=== PATIENT | female | born 1990 | race Two or more races ===

== ENCOUNTER 2023-07-05 12:10 | Inpatient (IN) | payer OTHER ==
[~2023-07-05] VITALS: Ht 160 cm; Wt 74.8 kg
[2023-07-05] MEDS ORDERED: PRENATAL + DHA1 EACH PO (12:41)
[2023-07-05 13:35] LABS: HEMATOCRIT 36.3 % (36.0-45.00); HEMOGLOBIN 12.5 g/dL (12.0-15.00); MEAN CELL VOLUME 98.4 fL (80.00-100.00); MEAN CORPUSCULAR HGB CONC 34.5 g/dl (32.0-36.0); PLATELET COUNT 181 K/uL (150-450); RED BLOOD COUNT 3.69 M/uL (4.00-6.00); RED CELL DISTRIBUTION WIDTH 12.2 % (11.5-14.5)
[2023-07-05 14:25] LABS: INR 0.97; PARTIAL THROMBOPLASTIN TIME 25.2 SECONDS (22.0-34.0); PROTHROMBIN TIME 10.2 SECONDS (9.0-11.5)
== END 2023-07-07 13:50 | disposition home or self-care (01) | DRG 807 ==
LOC: LDR 12:10 → OB/GYN 17:05 → SURG 07-13 13:30
PROVIDERS: ADMIT Obstetrics & Gynecology; ATTEND Obstetrics & Gynecology
PROC: 10E0XZZ Delivery of Products of Conception, External Approach (ICD-10-PCS; principal; 2023-07-05)
PROC: 0UQG7ZZ Repair Vagina, Via Natural or Artificial Opening (ICD-10-PCS; 2023-07-05)
PROC: 4A1HXCZ Monitoring of Products of Conception, Cardiac Rate, External Approach (ICD-10-PCS; 2023-07-05)
DX: O71.4 Obstetric high vaginal laceration alone (principal); Z37.0 Single live birth; Z3A.38 38 weeks gestation of pregnancy; Z20.822 Contact with and (suspected) exposure to COVID-19

== ENCOUNTER 2024-04-29 05:11 | Day surgery (SDC) | payer OTHER ==
[2024-04-27 08:58] LABS: HEMATOCRIT 39.4 % (36.0-45.00); HEMOGLOBIN 13.6 g/dL (12.0-15.00); MEAN CELL VOLUME 95.4 fL (80.00-100.00); MEAN CORPUSCULAR HEMOGLOBIN 32.8 pg (27.00-32.0); MEAN CORPUSCULAR HGB CONC 34.4 g/dl (32.0-36.0); PLATELET COUNT 239 K/uL (150-450); RED BLOOD COUNT 4.13 M/uL (4.00-6.00); RED CELL DISTRIBUTION WIDTH 12.2 % (11.5-14.5)
[2024-04-27 09:41] LABS: INR 1.01; PARTIAL THROMBOPLASTIN TIME 29.2 SECONDS (22.0-34.0)
[2024-04-27 10:11] LABS: BILIRUBIN TOTAL 0.53 mg/dL (0.3-1.2); CALCIUM 9.1 mg/dL (8.5-10.1); CREATININE SERUM 0.63 mg/dL (0.55-1.02); GFR 108.83; GLOBULINA 3.1 G/DL (2.4-3.5); POTASSIUM 4.14 mEq/L (3.5-5.1); TOTAL PROTEIN 7.1 gm/dL (6.4-8.2)
[~2024-04-29 05:11] MED LIST: PRENATAL + DHA1 EACH PO
[2024-04-29] MEDS ORDERED: POVIDONE-IODINE 118 ML BOTT TOP ONE (06:58)
[2024-04-29] MEDS ORDERED: CEFOXITIN SODIUM 2,000 MG VIAL IV ONE (06:59)
[2024-04-29] MEDS ORDERED: RINGERS SOLUTION,LACTATED 1,000 ML IV SCH (08:30)
== END 2024-04-29 15:40 | disposition home or self-care (01) ==
LOC: CIR.AMB 05:11
PROVIDERS: ATTEND Obstetrics & Gynecology
DX: O02.1 Missed abortion (principal)

== ENCOUNTER 2025-07-01 13:45 | Inpatient (IN) | payer OTHER ==
[~2025-07-01] VITALS: Ht 160 cm; Wt 78.5 kg
[2025-07-11] VITALS (7 sets, daily range): BP systolic 106–130; BP diastolic 66–77
[2025-07-11] MEDS ORDERED: PRENATAL CAPLE1 EAC1 PO (01:40)
[2025-07-11] MEDS ORDERED: RINGERS SOLUTION,LACTATED 1,000 ML IV SCH (01:45)
[2025-07-11 01:59] LABS: BASO % 0.3 % (0.1-1.2); EOS # 0.12 (0.04-0.54); EOS % 1.1 % (0.7-7.0); LYMPH # 2.75 (1.18-3.74); LYMPH % 25.6 % (19.3-53.1); MEAN PLATELET VOLUME 11.40 fl (9.4-12.4); MONO # 1.02 (0.24-0.82); MONO % 9.5 % (4.7-12.5); NEUT # 6.74 (1.56-6.13); NEUT % 62.8 % (34.0-71.1); RED CELL DISTRIBUTION WIDTH 11.7 % (11.6-14.4)
[2025-07-11 02:25] LABS: INR 0.96
[2025-07-11 02:30] LABS: ALT/SGPT 24.0 U/L (12-78); AST/SGOT 26.0 U/L (15-37); BILIRUBIN TOTAL 0.41 mg/dL (0.3-1.2); BUN CREA RATIO 23.0 (7.0-25.0); CREATININE SERUM 0.52 mg/dL (0.55-1.02); GFR 134.98; GLOBULINA 2.8 G/DL (2.4-3.5); GLUCOSE FASTING 90.0 mg/dL (65-100); OSMOLALITY SERUM 277.0 MOSM/KG (275-295)
[2025-07-11] MEDS ORDERED: CHLORHEXIDINE GLUCONATE 120 ML BOTTLE TOP SCH (04:15)
[2025-07-11] MEDS ORDERED: ACETAMINOPHEN WITH CODEINE 1 UDTAB TABLET PO PRN (04:15)
[2025-07-11] MEDS ORDERED: OXYTOCIN 1,000 ML IV SCH (04:15)
[2025-07-11] MEDS ORDERED: ERYTHROMYCIN BASE OPHT 1GM EACH TUBE OP ONE (04:15)
[2025-07-11] MEDS ORDERED: LIDOCAINE HCL 1% 10ML VIAL IJ ONE (04:15)
[2025-07-12 05:18] VITALS: BP 105/68
[2025-07-12 08:50] VITALS: BP 102/66
[2025-07-12 16:05] VITALS: BP 112/76
[2025-07-13 00:53] VITALS: BP 98/62
[2025-07-13 08:14] VITALS: BP 113/75
== END 2025-07-13 12:59 | disposition home or self-care (01) | DRG 807 ==
LOC: OB/GYN 07-09 13:45 → LDR 07-11 01:34 → OB/GYN 07-11 01:34
PROVIDERS: ADMIT Obstetrics & Gynecology; ATTEND Obstetrics & Gynecology
PROC: 10E0XZZ Delivery of Products of Conception, External Approach (ICD-10-PCS; principal; 2025-07-11)
PROC: 0UQG7ZZ Repair Vagina, Via Natural or Artificial Opening (ICD-10-PCS; 2025-07-11)
PROC: 4A1HXCZ Monitoring of Products of Conception, Cardiac Rate, External Approach (ICD-10-PCS; 2025-07-11)
DX: O71.4 Obstetric high vaginal laceration alone (principal); Z37.0 Single live birth; Z3A.40 40 weeks gestation of pregnancy

== ENCOUNTER → 2025-07-05 | Outpatient (CLI) | payer OTHER | END | disposition home or self-care (01) | LOC: NST 12:03 | PROVIDERS: ATTEND Obstetrics & Gynecology | DX: Z34.83 Encounter for supervision of other normal pregnancy, third trimester (principal) ==